=== PATIENT | female | born 1955 | race Caucasian/White ===

== ENCOUNTER 2019-03-18 21:17 | Emergency (ER) | payer MEDICAID ==
[~2019-03-18] VITALS: Ht 170.2 cm; Wt 77.1 kg
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
--- NOTE | 2019-03-18 22:06 | NUR ---
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
[2019-03-18 23:33] VITALS: BP 131/84
== END 2019-03-18 23:34 | disposition home or self-care (01) ==
LOC: ER 21:17
DX: S92.024A Nondisplaced fracture of anterior process of right calcaneus, initial encounter for closed fracture (principal); X50.1XXA Overexertion from prolonged static or awkward postures, initial encounter; Y93.89 Activity, other specified; Y92.89 Other specified places as the place of occurrence of the external cause; Y99.8 Other external cause status
CPT/HCPCS: 73610-TC; 73630-TC